=== PATIENT | female | born 2000 | race Caucasian/White ===

== ENCOUNTER 2019-09-07 19:23 | Emergency (ER) | payer OTHER ==
[~2019-09-07] VITALS: Ht 160 cm; Wt 115.8 kg
[~2019-09-07 19:23] MED LIST: IBUP-1542 PO
[2019-09-07 19:29] VITALS: BP 159/84; PULSE 82; RESP 16; Ht 160 cm; Wt 115.8 kg
== END 2019-09-07 21:00 | disposition home or self-care (01) ==
LOC: FTE 19:23
DX: J02.9 Acute pharyngitis, unspecified (principal)
CPT/HCPCS: 99282